=== PATIENT | male | born 1970 | race African-American/Black ===

== ENCOUNTER 2019-07-01 04:28 | Emergency (ER) | payer SELFPAY ==
[~2019-07-01] VITALS: Ht 177.8 cm; Wt 68.2 kg
[2019-07-01 04:42] VITALS: Ht 177.8 cm; Wt 68.2 kg
[2019-07-01] MEDS ORDERED: PENICILLIN V P500 MG PO (05:12)
[2019-07-01] MEDS ORDERED: TORADOL10 MG PO (05:12)
[2019-07-01 05:44] VITALS: BP 120/78
== END 2019-07-01 05:43 | disposition home or self-care (01) ==
LOC: D.ER 04:28
DX: K02.63 Dental caries on smooth surface penetrating into pulp (principal)

== ENCOUNTER 2019-09-10 13:45 | Emergency (ER) | payer OTHER ==
[~2019-09-10] VITALS: Ht 177.8 cm; Wt 65.9 kg
[~2019-09-10 13:45] MED LIST: PENICILLIN V P500 MG PO; TORADOL10 MG PO
[2019-09-10 14:26] VITALS: Ht 177.8 cm; Wt 65.9 kg
[2019-09-10] MEDS ORDERED: NAPROSYN500 MG PO (16:42)
[2019-09-10] MEDS ORDERED: AMOXICILLIN500 M1 PO (16:42)
[2019-09-10 16:46] VITALS: BP 135/76
== END 2019-09-10 16:50 | disposition home or self-care (01) ==
LOC: D.ER 13:45
DX: K04.7 Periapical abscess without sinus (principal); K08.89 Other specified disorders of teeth and supporting structures; Z72.0 Tobacco use